=== PATIENT | female | born 1990 | race Caucasian/White ===

== ENCOUNTER 2023-02-21 10:48 | Emergency (ER) | payer OTHER ==
[~2023-02-21] VITALS: Ht 160 cm; Wt 154.6 kg
[2023-02-21] MEDS ORDERED: ONDANSETRON HCL 4 MG/2 ML VIAL IVP ONE (11:45)
[2023-02-21] MEDS ORDERED: SODIUM CHLORIDE 0.9% 1,000 ML IV ONE (11:45)
[2023-02-21] MEDS ORDERED: MORPHINE SULFATE 2 MG/ML SYRINGE IVP ONE ×2 (11:45→14:30)
[2023-02-21 12:08] LABS: BASOPHILS % (AUTO) 0.7 % (0.0-2.0); EOSINOPHILS % (AUTO) 1.2 % (1.0-6.0); HEMATOCRIT 25.7 % (36-46); LYMPHOCYTES # (AUTO) 2.5 K/uL (1.0-4.8); LYMPHOCYTES % (AUTO) 16.8 % (22.0-44.0); MEAN CORPUSCULAR HGB CONC 26.9 G/dL (31.0-37.0); MEAN CORPUSCULAR VOLUME 56 fL (80-100); MONOCYTES # (AUTO) 0.9 K/uL (0.1-1.0); MONOCYTES % (AUTO) 6.2 % (2.0-9.0); NEUTROPHILS # (AUTO) 11.2 K/uL (1.8-7.7); NEUTROPHILS % (AUTO) 75.1 % (40.0-70.0); PLATELET COUNT (AUTO) 402 K/uL (150-450); RED BLOOD CELL COUNT(AUTO) 4.62 MIL/uL (4.00-5.20); RED CELL DISTRIBUTION WIDTH 21.6 % (11.5-14.5)
[2023-02-21 12:13] LABS: HEMOGLOBIN 6.9 g/dL (12.0-16.0)
[2023-02-21 12:34] LABS: ANION GAP 12 mmol/L (8-16); CALCIUM, TOTAL 9.1 mg/dL (8.8-10.5); CARBON DIOXIDE 25 mmol/L (22-29); CHLORIDE 103 mmol/L (98-107); CREATININE 0.62 mg/dL (0.60-1.30); GLOMERULAR FILTR. RATE CALC > 60 mL/min (>60); GLUCOSE,RANDOM 121 mg/dL (70-110); POTASSIUM 3.5 mmol/L (3.5-5.1); PROTHROMBIN TIME 10.9 SEC (9.4-11.6); SODIUM SERUM 140 mmol/L (136-145)
[2023-02-21] MEDS ORDERED: SODIUM CHLORIDE 0.9% 100 ML ONE (12:36)
[2023-02-21] MEDS ORDERED: IOHEXOL 350 MG/ML 100 ML VIAL ONE (12:36)
[2023-02-21 12:37] LABS: ALANINE AMINOTRANSFERASE 12 U/L (12-78); ALBUMIN 3.3 g/dL (3.4-5.0); ALKALINE PHOSPHATASE 79 U/L (46-116); ASPARTATE AMINOTRANSFERASE 12 U/L (15-37); BILIRUBIN,TOTAL 0.5 mg/dL (0.1-1.0); LIPASE 27 U/L (73-393); TOTAL PROTEIN, SERUM 8.5 g/dL (6.4-8.2)
[2023-02-21 13:02] LABS: HCG,QUANTITATIVE < 1 mIU/mL (0-6)
[2023-02-21 13:45] VITALS: BP 135/82; PULSE 88; RESP 20; TEMP 98.2
[2023-02-21 14:00] VITALS: BP 144/63; PULSE 90; RESP 20; TEMP 98.3
[2023-02-21 14:15] VITALS: BP 133/61; PULSE 90; RESP 20; TEMP 98.5
[2023-02-21 14:45] VITALS: BP 144/77; PULSE 93; RESP 18; TEMP 98.8
[2023-02-21 15:15] VITALS: BP 139/72; PULSE 91; RESP 18; TEMP 98.6
[2023-02-21 15:30] VITALS: BP 143/82; PULSE 88; RESP 18; TEMP 98.6
[2023-02-21] MEDS ORDERED: HYDROCODONE/ACETAMINOPHEN 5-325 MG TABLET PO ONE (19:30)
[2023-02-21 19:35] LABS: APPEARANCE,URINE CLEAR (CLEAR); BILIRUBIN,URINE NEGATIVE (NEGATIVE); GLUCOSE, URINE (UA) NEGATIVE (NEGATIVE); KETONES,URINE 40-60 mg/dL (NEGATIVE); LEUKOCYTE ESTERASE ,URINE NEGATIVE (NEGATIVE); NITRATE,URINE NEGATIVE (NEGATIVE); OCCULT BLOOD,URINE SMALL (NEGATIVE); PROTEIN,URINE TRACE mg/dL (NEGATIVE); UROBILINOGEN,URINE <=1.0 mg/dL (<=1.0)
[2023-02-21 19:43] LABS: BACTERIA,URINE Rare /HPF (None Seen); SQUAMOUS EPITHELIAL CELL,UR Few /LPF (None Seen); WBC,URINE 0-2 /HPF (0-5)
[2023-02-21 21:43] LABS: COVID AG,FIA SOURCE NASOPHARYNGEAL
[2023-02-22] MEDS ORDERED: HYDROCODONE/ACETAMINOPHEN 5-325 MG TABLET PO ONE (00:45)
[2023-02-22 02:04] VITALS: BP 125/62; PULSE 97; RESP 18; TEMP 100
== END 2023-02-22 02:18 | disposition short-term general hospital (02) ==
LOC: EMS 11:06
DX: N93.8 Other specified abnormal uterine and vaginal bleeding (principal); D64.9 Anemia, unspecified; N80.9 Endometriosis, unspecified; Z20.822 Contact with and (suspected) exposure to COVID-19
CPT/HCPCS: 99285; 74177; 92950; 96374; 76830; 76856; 96361; 96375; 87426; 80053; 81001; 83690; 84702; 85025; 85610; 85730; 86850; 86900; 86901; 86923; 36415; 96376; P9016; J2270; J2405; Q9967; J7030; J7050